=== PATIENT | female | born 2000 | race African-American/Black ===

== ENCOUNTER 2023-10-03 16:45 | Emergency (ER) | payer MEDICAID ==
[~2023-10-03] VITALS: Ht 157.5 cm; Wt 150.0 kg
[2023-10-03 16:48] VITALS: BP 148/90; PULSE 76; RESP 16; TEMP 98.3; O2SAT 98
[2023-10-03 18:00] LABS: BASOPHILS % 0.6 % (0.0-2.0); DIFFERENTIAL COMMENT 0; EOSINOPHILS % 1.4 % (0.0-5.0); HEMATOCRIT. 44.7 % (36.0-48.0); HEMOGLOBIN. 13.9 g/dL (12.0-16.0); LYMPHOCYTES % 31.9 % (20.0-50.0); MEAN CORPUSCULAR HEMOGLOBIN 22.1 pg (28.0-32.0); MEAN CORPUSCULAR VOLUME 71.3 fL (81.0-99.0); MEAN PLATELET VOLUME 9.7 fl (7.4-10.4); MONOCYTES % 13.4 % (2.0-8.0); NEUTROPHILS % 52.7 % (40.0-76.0); PLATELET 210 x1000/uL (130-400); RED BLOOD CELL COUNT 6.27 mill/uL (4.2-5.4); RED CELL DISTRIBUTION WIDTH 15.7 % (11.6-14.6); WHITE BLOOD COUNT 4.8 x1000/uL (4.5-11.0)
[2023-10-03 18:21] LABS: HCG SCREEN NEGATIVE
[2023-10-03 18:22] LABS: ALANINE AMINOTRANSFERASE 39 IU/L (10-49); ALBUMIN 4.2 g/dL (3.2-4.8); ASPARTATE AMINOTRANSFERASE 29 IU/L (<34); BILIRUBIN TOTAL 0.2 mg/dL (0.1-1.0); CARBON DIOXIDE 25 mEq/L (21-32); CHLORIDE 105 mEq/L (98-107); CREATININE 0.7 mg/dL (0.6-1.0); GLUCOSE 93 mg/dL (70-105); POTASSIUM 3.5 mEq/L (3.5-5.1); PROTEIN TOTAL 7.3 g/dL (6.0-8.3); SODIUM 139 mEq/L (136-145); UREA NITROGEN BLOOD 9 mg/dL (9-23)
[2023-10-03] MEDS ORDERED: IBUPROFEN 600MG TABLET PO ONE (19:15)
== END 2023-10-03 23:49 | disposition home or self-care (01) ==
LOC: ER 17:13
DX: R42 Dizziness and giddiness (principal); M79.10 Myalgia, unspecified site; R05.9 Cough, unspecified
CPT/HCPCS: 36415; 71045; 80053; 84703; 85025; 93005; 99285

== ENCOUNTER 2024-07-12 20:36 | Emergency (ER) | payer MEDICAID ==
[~2024-07-12] VITALS: Ht 172.7 cm; Wt 138.0 kg
[2024-07-12 20:40] VITALS: O2SAT 98
[2024-07-12] MEDS: KETOROLAC 30MG/ML VIAL IM ONE (23:20)
[2024-07-13] MEDS ORDERED: NAPR220C61 MT (00:01)
[2024-07-13 00:48] VITALS: BP 148/88; PULSE 98; RESP 18; TEMP 36.83628; O2SAT 98
== END 2024-07-13 00:50 | disposition home or self-care (01) ==
LOC: ER 20:36
DX: S99.911A Unspecified injury of right ankle, initial encounter (principal); G89.11 Acute pain due to trauma; V49.49XA Driver injured in collision with other motor vehicles in traffic accident, initial encounter; Y93.89 Activity, other specified; Y92.89 Other specified places as the place of occurrence of the external cause; Y99.8 Other external cause status
CPT/HCPCS: 99284; 73590; 73610; 96372; J1885